=== PATIENT | female | born 1990 | race Caucasian/White ===

== ENCOUNTER 2018-10-11 14:40 | Emergency (ER) | payer MEDICAID, OTHER ==
[2018-10-11 14:41] VITALS: BMI 24.0
[2018-10-11] MEDS ORDERED: Sodium Chloride 0.9% 1,000 ML IV ONE (16:08)
[2018-10-11 16:37] LABS: BASO % 0.3 % (0.0-2.0); HEMOGLOBIN 11.5 g/dL (12.0-16.0); LYMPH % 8.3 % (20.0-40.0); MEAN CELL VOLUME 77.3 fl (81.0-99.0); MEAN CORPUSCULAR HEMOGLOBIN 24.9 pg (27.0-31.0); MEAN CORPUSCULAR HGB CONC 32.3 g/dL (33.0-37.0); MEAN PLATELET VOLUME 8.5 fl (7.2-11.7); MONO # 0.6 K/uL (0.0-0.8); MONO % 4.8 % (0.0-10.0); NEUT # 10.2 K/uL (1.8-7.0); NEUT % 86.6 % (50.0-75.0); PLATELET COUNT 277 K/uL (130-400); RBC 4.61 Mil/uL (3.80-5.20); RED CELL DISTRIBUTION WIDTH 20.4 % (11.5-14.5); WHITE BLOOD COUNT 11.8 K/uL (4.8-10.8)
[2018-10-11 16:49] LABS: ALB/GLOB RATIO 1.3 (1.0-2.1); ALBUMIN 4.7 g/dL (3.5-5.0); ALT/SGPT 37 U/L (9-52); AST/SGOT 28 U/L (14-36); BLOOD UREA NITROGEN 11 mg/dl (7-17); CALCIUM 10.3 mg/dL (8.4-10.2); GFR NON-AFRICAN AMERICAN > 60
[2018-10-11 17:02] LABS: SQUAMOUS EPITHIAL 13 /hpf (0-5); URINE AMORPHOUS SEDIMENT RARE /ul (<OCC); URINE BILIRUBIN NEGATIVE (NEGATIVE); URINE BLOOD MODERATE (NEGATIVE); URINE CLARITY CLOUDY (Clear); URINE COLOR YELLOW (YELLOW); URINE GLUCOSE (UA) NEG (NEGATIVE); URINE LEUKOCYTE ESTERASE NEG Leu/uL (Negative); URINE PROTEIN 100 mg/dL (NEGATIVE); URINE UROBILINOGEN 0.2-1.0 mg/dL (0.2-1.0)
[2018-10-11] MEDS ORDERED: Iohexol 240 (50 ml) PO ONE (17:22)
[2018-10-11] MEDS ORDERED: cefTRIAXone (Rocephin) 1 gm Inj ONE (17:32)
[2018-10-11 18:26] LABS: ANISOCYTOSIS SLIGHT; BANDS 6 % (0-2); HYPOCHROMIC MODERATE; LYMPHOCYTE 10 % (20-50); MONOCYTE 2 % (0-10); NEUTROPHIL 82 % (42-75); PLATELET ESTIMATE NORMAL (NORMAL); STOMATOCYTES SLIGHT; TOTAL CELLS COUNTED 100
--- NOTE | 2018-10-11 19:19 | ED PDOC ---
HPI: Abdomen Time Seen by Provider: 10/11/18 15:07 Chief Complaint (Nursing): Abdominal Pain Chief Complaint (Provider): Abdominal Pain and Diarhhea History Per: Patient History/Exam Limitations: no limitations Onset/Duration Of Symptoms: Days (one) Outside of [place] travel?: No Current Symptoms Are (Timing): Still Present Context: Food (Pt presents afebrile with a history that includes a young son that was dx with salmonella two days ago. This patient has similar symptoms of diarhhea without vomiting or nausea as well as difuse abdominal pain. ) Past Medical History Reviewed: Historical Data, Nursing Documentation, Vital Signs Vital Signs: Last Vital Signs Temp 102.8 F H 10/11/18 15:01 Pulse 130 H 10/11/18 15:01 Resp 19 10/11/18 15:01 BP 134/88 10/11/18 15:01 Pulse Ox 98 10/11/18 15:01 - Family History Family History: States: Unknown Family Hx - Immunization History Hx Tetanus Toxoid Vaccination: No Hx Influenza Vaccination: No Hx Pneumococcal Vaccination: No - Home Medications Home Medications: Ambulatory Orders Medication Instructions Recorded Ibuprofen [Motrin] 600 mg PO Q6H PRN #20 tab 09/28/16 Penicillin VK [Penicillin VK Tab] 2 tab PO BID #28 tab 09/28/16 - Allergies Allergies/Adverse Reactions: Allergies Allergy/AdvReac Type Severity Reaction Status Date / Time No Known Allergies Allergy Verified 09/28/16 12:55 Review of Systems ROS Statement: Except As Marked, All Systems Reviewed And Found Negative Constitutional: Positive for: Fever Gastrointestinal: Positive for: Nausea, Abdominal Pain, Diarrhea. Negative for: Vomiting Physical Exam - Reviewed Nursing Documentation Reviewed: Yes Vital Signs Reviewed: Yes - Physical Exam Appears: Positive for: No Acute Distress, Uncomfortable Head Exam: Positive for: ATRAUMATIC, NORMAL INSPECTION Skin: Positive for: Normal Color, Warm, Diaphoresis. Negative for: Pallor, Rash Eye Exam: Positive for: Normal appearance, PERRL ENT: Positive for: Normal ENT Inspection Neck: Positive for: Normal, Painless ROM, Supple. Negative for: Decreased ROM Cardiovascular/Chest: Positive for: Regular Rate, Rhythm Respiratory: Positive for: Normal Breath Sounds. Negative for: Crackles, Rales, Rhonchi, Stridor, Wheezing, Respiratory Distress Pulses-Carotid (L): 2+ Pulses-Carotid (R): 2+ Pulses-Radial (L): 2+ Pulses-Radial (R): 2+ Gastrointestinal/Abdominal: Positive for: Normal Exam, Bowel Sounds (active in all four quadrants; there is no rebound tenderness; no tenderness at m[place] point an dthe deleon sign is negative; obdulia and rovsing are negative), Soft. Negative for: Tenderness (the patient denies tenderness but indicates abdominal pain after ED for one hour), Guarding, Rebound Neurologic/Psych: Positive for: Alert, Oriented - Laboratory Results Result Diagrams: 10/11/18 16:32 10/11/18 16:32 Lab Results: Total Bilirubin 0.7 mg/dl (0.2-1.3) 10/11/18 16:32 AST 28 U/L (14-36) 10/11/18 16:32 ALT 37 U/L (9-52) 10/11/18 16:32 Alkaline Phosphatase 84 U/L (38-126) 10/11/18 16:32 Total Protein 8.4 G/DL (6.3-8.2) H 10/11/18 16:32 Albumin 4.7 g/dL (3.5-5.0) 10/11/18 16:32 Globulin 3.7 gm/dL (2.2-3.9) 10/11/18 16:32 Albumin/Globulin Ratio 1.3 (1.0-2.1) 10/11/18 16:32 Urine Color Yellow (YELLOW) 10/11/18 16:32 Urine Clarity Cloudy (Clear) 10/11/18 16:32 Urine pH 5.0 (5.0-8.0) 10/11/18 16:32 Ur Specific [place] 1.027 (1.003-1.030) 10/11/18 16:32 Urine Protein 100 mg/dL (NEGATIVE) 10/11/18 16:32 Urine Glucose (UA) Neg mg/dL (NEGATIVE) 10/11/18 16:32 Urine Ketones Negative mg/dL (NEGATIVE) 10/11/18 16:32 Urine Blood Moderate (NEGATIVE) 10/11/18 16:32 Urine Nitrate Negative (NEGATIVE) 10/11/18 16:32 Urine Bilirubin Negative (NEGATIVE) 10/11/18 16:32 Urine Urobilinogen 0.2-1.0 mg/dL (0.2-1.0) 10/11/18 16:32 Ur Leukocyte Esterase Neg Emilie/uL (Negative) 10/11/18 16:32 Urine RBC (Auto) 8 /hpf (0-3) H 10/11/18 16:32 Ur Squamous Epith Cells 13 /hpf (0-5) H 10/11/18 16:32 Amorphous Sediment Rare /ul (<OCC) H 10/11/18 16:32 - ECG O2 Sat by Pulse Oximetry: 98 Disposition - Clinical Impression Clinical Impression: Abdominal discomfort - Patient ED Disposition Is Patient to be Admitted: Transfer of Care - Disposition Disposition: Transfer of Care Disposition Time: 20:06 Condition: STABLE Forms: [employer] ([place])
[2018-10-11] MEDS ORDERED: Iohexol 300 100 ML IJ ONE (20:00)
[2018-10-11] MEDS ORDERED: Sodium Chloride 0.9% 50 ML IV ONE (20:00)
--- NOTE | 2018-10-11 21:12 | ED PDOC ---
- Laboratory Results Result Diagrams: 10/11/18 16:32 10/11/18 16:32 Lab Results: Total Bilirubin 0.7 mg/dl (0.2-1.3) 10/11/18 16:32 AST 28 U/L (14-36) 10/11/18 16:32 ALT 37 U/L (9-52) 10/11/18 16:32 Alkaline Phosphatase 84 U/L (38-126) 10/11/18 16:32 Total Protein 8.4 G/DL (6.3-8.2) H 10/11/18 16:32 Albumin 4.7 g/dL (3.5-5.0) 10/11/18 16:32 Globulin 3.7 gm/dL (2.2-3.9) 10/11/18 16:32 Albumin/Globulin Ratio 1.3 (1.0-2.1) 10/11/18 16:32 Urine Color Yellow (YELLOW) 10/11/18 16:32 Urine Clarity Cloudy (Clear) 10/11/18 16:32 Urine pH 5.0 (5.0-8.0) 10/11/18 16:32 Ur Specific [place] 1.027 (1.003-1.030) 10/11/18 16:32 Urine Protein 100 mg/dL (NEGATIVE) 10/11/18 16:32 Urine Glucose (UA) Neg mg/dL (NEGATIVE) 10/11/18 16:32 Urine Ketones Negative mg/dL (NEGATIVE) 10/11/18 16:32 Urine Blood Moderate (NEGATIVE) 10/11/18 16:32 Urine Nitrate Negative (NEGATIVE) 10/11/18 16:32 Urine Bilirubin Negative (NEGATIVE) 10/11/18 16:32 Urine Urobilinogen 0.2-1.0 mg/dL (0.2-1.0) 10/11/18 16:32 Ur Leukocyte Esterase Neg Emilie/uL (Negative) 10/11/18 16:32 Urine RBC (Auto) 8 /hpf (0-3) H 10/11/18 16:32 Ur Squamous Epith Cells 13 /hpf (0-5) H 10/11/18 16:32 Amorphous Sediment Rare /ul (<OCC) H 10/11/18 16:32 - ECG O2 Sat by Pulse Oximetry: 98 - Progress ED Course And Treament: 1999 Signed out to me pending CT. 2019 On my initial evaluation, pt. seen drinking oral contrast. Denies cough, congestion, sore throat, rash, bodyaches, headache. Rocephin IV infusion completed already. Stool cultures ordered. 2129 As per RN, pt. still febrile. Motrin, tylenol, additional bolus ordered. 2209 CT abd/pelvis: diffuse enterocolitis/proctitis; punctate non-obstructing renal calculi Case d/w Dr. Edmonds who recommends Cipro/flagyl and agrees with current plan. Cipro/Flagyl IV ordered. 114 Repeat temp: 100.5 HR: 96 bpm on shelter monitor. Disposition - Clinical Impression Clinical Impression: Enteritis - POA Present On Arrival: None - Disposition Referrals: [facility] [employer] [facility] Mota [Outside] Disposition: Routine/Home Disposition Time: 23:47 Condition: IMPROVED Additional Instructions: DRINK PLENTY OF FLUIDS CONTINUE TAKING TYLENOL AND MOTRIN AT HOME FOR FEVER FOLLOW UP WITH YOUR DOCTOR FOR FURTHER EVALUATION RETURN TO ED IMMEDIATELY IF SYMPTOMS WORSEN [place] PAEZ, thank you for letting us take care of you today. Your provider was Bea العلي MD and you were treated for FEVER,DIARRHEA,VOMITING. The emergency medical care you received today was directed at your acute symptoms. If you were prescribed any medication, please fill it and take as directed. It may take several days for your symptoms to resolve. Return to the Emergency Department if your symptoms worsen, do not improve, or if you have any other problems. Please contact your doctor or call one of the physicians/clinics you have been referred to that are listed on the Patient Visit Information form that is included in your discharge packet. Bring any paperwork you were given at discharge with you along with any medications you are taking to your follow up visit. Our treatment cannot replace ongoing medical care by a primary care provider outside of the emergency department. Thank you for allowing the [facility] team to be part of your care today. If you had an X-Ray or CT scan: A Radiologist will review the ED reading if any change in treatment is needed we will contact you. If you had a blood, urine, or wound culture: It will take several days for the results, if any change in treatment is needed we will contact you. If you had an STI test: It will take 48 hours for the results. Please call after 1 week if you have not heard back. Prescriptions: Ciprofloxacin [Cipro] 500 mg PO BID #14 tab Dicyclomine [Bentyl] 20 mg PO TID PRN #10 tab PRN Reason: abdominal pain metroNIDAZOLE [Flagyl] 500 mg PO TID #21 tab Instructions: Diarrhea in Adolescents and Adults, Fever, Adult (DC) Forms: [employer] (Faroese)
[2018-10-11] MEDS ORDERED: Sodium Chloride 0.9% 1,000 ML IV STA (21:40)
[2018-10-11] MEDS ORDERED: metroNIDAZOLE 500mg/100ml NS 100 ML IVPB STA (22:10)
[2018-10-11] MEDS ORDERED: Ciprofloxacin 400mg/200ml D5W 400 MG/200 ML BAG IVPB STA (22:10)
[2018-10-11] MEDS ORDERED: Ciprofloxacin 400mg/200ml D5W 400 MG/200 ML BAG IVPB ONE (23:11)
[2018-10-11] MEDS ORDERED: metroNIDAZOLE 500mg/100ml NS 100 ML IVPB ONE (23:11)
[2018-10-12 00:25] VITALS: RESP 16
[2018-10-12 02:11] VITALS: BP 112/61; PULSE 96; TEMP 99.2; O2SAT 97
--- NOTE | 2018-10-12 11:50 | CT ---
Date of service: 10/11/2018 PROCEDURE: CT Abdomen and Pelvis with contrast HISTORY: r/o acute abdomen; difuse abd pain COMPARISON: None available. TECHNIQUE: CT scan of the abdomen and pelvis was performed after administration of intravenous contrast. Oral contrast was administered. Coronal and sagittal reformatted images were obtained. Contrast dose: 90 mL Omnipaque 3 Radiation dose: Total exam DLP = 369.32 mGy-cm. This CT exam was performed using one or more of the following dose reduction techniques: Automated exposure control, adjustment of the mA and/or kV according to patient size, and/or use of iterative reconstruction technique. FINDINGS: LOWER THORAX: The visualized lungs are clear. LIVER: Mild hepatomegaly. Normal homogeneous enhancement. No gross lesion or ductal dilatation. GALLBLADDER AND BILE DUCTS: Well distended. No calcified gallstones, wall thickening or pericholecystic fluid. PANCREAS: Normal in size with homogeneous enhancement. No gross lesion or ductal dilatation. SPLEEN: Mild splenomegaly. Homogeneous enhancement. ADRENALS: No discrete nodule. KIDNEYS AND URETERS: Normal in size with homogeneous enhancement. There are small nonobstructing stones in the lower poles of both kidneys, the largest in the right lower pole measures 3 mm. No hydronephrosis. No solid mass. VASCULATURE: No aortic aneurysm. There are no aortic atherosclerotic calcifications or mural plaque present. BOWEL: The small bowel loops are normal in caliber. There is moderate diffuse circumferential mural thickening in the colon, worse in the cecum where there is severe circumferential mural thickening. The ileocecal junction is normal. No bowel obstruction APPENDIX: Normal appendix. PERITONEUM: No free fluid. No free air. LYMPH NODES: No enlarged lymph nodes. BLADDER: Well distended and normal in appearance. REPRODUCTIVE: The uterus is normal in size. BONES: No acute fracture. Within normal limits for the patient's age. OTHER FINDINGS: None. IMPRESSION: Findings are most compatible with acute nonspecific infectious/inflammatory colitis, worse in the cecum. No bowel obstruction. Small nonobstructing stones in the lower poles of both kidneys. Mild hepatosplenomegaly. A preliminary report was provided by [facility].
== END 2018-10-12 01:45 | disposition home or self-care (01) ==
LOC: H.ER 14:40
DX: K52.9 Noninfective gastroenteritis and colitis, unspecified (principal)
CPT/HCPCS: 74177; 80053; 81003; 81025; 85025; 87040; 87045; 87070; 87086; 87177; 87206; 87209; 87430; 87804; 96361; 96365; 96367; 96375; 99284; J0696; J0744; J2405; J7030; Q9966; Q9967